=== PATIENT | male | born 1960 | race Caucasian/White ===

== ENCOUNTER 2018-03-17 15:12 | Emergency (ER) | payer OTHER ==
[~2018-03-17] VITALS: Ht 182.9 cm; Wt 113.4 kg
[2018-03-17 15:22] VITALS: BP 151/91
== END 2018-03-17 17:59 | disposition left against medical advice (07) ==
LOC: ER 15:12
DX: S61.451A Open bite of right hand, initial encounter (principal); Z53.21 Procedure and treatment not carried out due to patient leaving prior to being seen by health care provider; W54.0XXA Bitten by dog, initial encounter; Y93.89 Activity, other specified; Y99.8 Other external cause status; Y92.89 Other specified places as the place of occurrence of the external cause